=== PATIENT | male | born 1950 | race African-American/Black ===

== ENCOUNTER 2021-12-10 06:55 | Day surgery (SDC) | payer BC, SELFPAY ==
[2021-12-10] MEDS: LACTATED RINGERS 1000 ML 1,000 ML 100 ML IV (07:10)
[2021-12-10] MEDS: SODIUM CHLORIDE 0.9 % (FLUSH) 10 ML SYRINGE IVF (07:10)
[2021-12-10 07:13] VITALS: BP 135/78; PULSE 79; RESP 16; TEMP 36.6; O2SAT 98; BMI 24.0
--- NOTE | 2021-12-10 07:19 | SUR.PREOP ---
Covid home antigen test negative.
[2021-12-10] MEDS: CEFAZOLIN 1 GM inj IVP (07:44)
[2021-12-10] MEDS: BUPIVACAINE 0.25% 30 ML INJECTION (07:54)
--- NOTE | 2021-12-10 09:02 | PM.GSPRC ---
Operative Note Date of procedure: 12/10/21 Type of Procedure: 1. Excision of left breast mass 2. Excision of left flank mass 3. Excision of left posterior upper thigh mass Procedure Description: After discussing the risks and benefits of the procedure, the patient signed informed consent.? The operative site was marked and the patient was brought to the operating room and placed on the operating table in supine position.? Care was taken to pad the patient's pressure points.?? The patient was then given sedation by anesthesia.?? The operative site was then prepped and draped in the usual sterile fashion.? A time-out was then performed. Attention was 1st directed to the left posterior upper thigh mass. Local anesthetic was infiltrated in the surgical field. A horizontal incision was made directly over the mass. Dissection was carried down with electrocautery through subcutaneous tissue. The mass was multi lobulated and circumferentially dissected out in pieces. This was passed off to the back table to be sent to pathology. Findings were consistent with lipoma. Hemostasis was assured with electrocautery. The incision was closed in layers with interrupted 3 0 Vicryl and running 4-0 Monocryl. Exofin was applied over top. The patient was then repositioned supine and the chest and left flank prepped and draped in sterile fashion. Local anesthetic was infiltrated in the surgical field. A horizontal incision was made directly over the mass on the left chest, as well as left flank. Dissection was carried down for both areas with electrocautery through subcutaneous tissue. Both masses were welling capsulated and consistent with a mature lipoma. The mass was circumferentially dissected out in each area. In both places it was slightly adherent to the underlying fascia, but did not involve the fascia. Both masses were removed in its entirety and passed off to be sent to pathology. Hemostasis was assured with electrocautery. Both incisions were closed in layers with interrupted 3 0 Vicryl and running 4-0 Monocryl. Exofin was applied over top. ? The patient was then woken and transported to the recovery area in stable condition. ? The patient tolerated the procedure well. Findings: Lipomatous masses of the left posterior thigh, left chest and left flank. Anesthesia: MAC and local Surgeon: Lore Cabello MD Estimated blood loss (mL): 5 Condition: stable Disposition: same day
[2021-12-10 09:15] VITALS: BP 112/67; PULSE 65; RESP 16; TEMP 35.9; O2SAT 96
--- NOTE | 2021-12-10 09:20 | W.ANESCHARGE ---
Anesthesia Charges Start Date/Time Anesthesia Start Date: 12/10/21 Anesthesia Start Time: 07:33 Stop Date/Time Anesthesia Stop Date: 12/10/21 Anesthesia Stop Time: 09:18 Summary Emergency: No Extremes of Age: Over 70-CPT 98643
[2021-12-10 09:30] VITALS: BP 116/66; PULSE 63; RESP 16; O2SAT 98
[2021-12-10 09:45] VITALS: BP 112/72; PULSE 60; RESP 16; O2SAT 98
--- NOTE | 2021-12-10 10:06 | W.ANESCHARGE ---
Anesthesia Charges Start Date/Time Anesthesia Start Date: 12/10/21 Anesthesia Start Time: 07:33 Stop Date/Time Anesthesia Stop Date: 12/10/21 Anesthesia Stop Time: 09:18 Summary Emergency: No Extremes of Age: Over 70-CPT 27093
== END 2021-12-10 10:03 | disposition home or self-care (01) ==
PROVIDERS: PCP Physician Assistant Medical; Visit Provider Surgery
PROC: (CPT 27337; principal; 2021-12-10 07:30)
DX: D17.1 Benign lipomatous neoplasm of skin and subcutaneous tissue of trunk (principal); D17.24 Benign lipomatous neoplasm of skin and subcutaneous tissue of left leg
CPT/HCPCS: 27337; 21931; 21552; 00400; 88304; 99100; J0690; J2250; J2405; J2704; J3010; J3490; J7120

== ENCOUNTER 2022-06-26 18:38 | Emergency (ER) | payer BC, SELFPAY ==
[2022-06-26 18:43] VITALS: BP 159/82; PULSE 88; RESP 16; TEMP 36.6; O2SAT 98; BMI 24.2
--- NOTE | 2022-06-26 19:32 | ED.NURSE ---
Lawrence placed 900 cc removed.
[2022-06-26 19:40] LABS: Appearance Urine Clear (Clear); Bilirubin Urine Negative (Negative); Blood Urine 1+ (Negative); Color Urine Yellow (Yellow); Glucose Urine Negative (Negative); Ketones Urine Negative (Negative); Leukocyte Esterase Urine Negative (Negative); Nitrite Urine Negative (Negative); Protein Urine Negative (Negative); Specific Gravity Urine 1.015 (1.000-1.030); Urobilinogen Urine 0.2 (0.2-1.0); pH Urine 6.5 (5.0-8.5)
--- OUTSIDE RECORDS SUMMARY | 2022-06-26 19:46 | XMS_ITS | Continuity of Care Document ---
Author Name Unknown Organization [facility] Address [address] [address] [place] [address] Phone Care Team Providers Care Marking Room Supervisor Name Role Phone Unavailable Unavailable Unavailable Allergies, Adverse Reactions, Alerts Substance Reaction Status Criticality ibuprofen Active No Information Medications Medication Instructions Dosage Effective Dates (start - stop) Status Comments Epzicom 600 mg-300 mg tablet take 1 tablet by oral route every day 1.00 tablet - Active acetaminophen 325 mg tablet take 1 Tablet by ORAL route every 4 hours as needed 325 MG - Active clarithromycin 500 mg tablet take 1 tablet by oral route 2 times every day 500 MG - Active Sustiva 600 mg tablet take 1 tablet by oral route every day at bedtime - Active Vitamin D2 50,000 unit capsule take 1 capsule by ORAL route every week 76875 UNITS - Active ethambutol 400 mg tablet take 2 Tablet by oral route every day - Active folic acid 1 mg tablet take 1 tablet by oral route every day 1 MG - Active multivitamin tablet take 1 tablet by oral route every day with food - Active ZOFRAN ODT 4 mg disintegrating tablet take 1 Tablet by oral route every [address] on top of the tongue where it will dissolve, then swallow 4 MG - Active Procedures Procedure Date Subsqt Hosp-da E&m Minr Compl 4 Init Inpt Cons New/est Mod-hi 4 Offic/outpt E&m Estab Low-mod 4 Ugi Endo; W/bx /mx Level Iv-surg Path Gross/micro 14 Special Stains; Grp I Microorg 14 Immunocytochemistry, Each Antibody Immunocytochemistry Each Add'l Antibody Offic/outpt E&m Estab Low-mod 4 Routine Serum Collection Hepatic Function Panel Hepatic Function Panel Offic/outpt E&m Estab Mod-hi 2 14 Routine Serum Collection Subsqt Hosp-da E&m Minr Compl 4 Subsqt Hosp-da E&m Minr Compl 4 Subsqt Hosp-da E&m Minr Compl 4 Subsqt Hosp-da E&m Minr Compl 4 Init Inpt Cons New/est Mod-hi 4 Sigmoidoscopy Flex; W/bx /mx 4 Advance Directives Directive Yes / No Effective Date File Name No Information Encounters Encounter Description Practice Location Reason(s) For Visit Diagnoses Date Provider Providers Copied on Encounter [facility], [address] [address], [place], [id number], [place] tel:[phone] [facility] No Information 5 No Information Grady Reyna MD. tel:[phone] Subsqt Hosp-da E&m Minr Compl [facility], [address] [address], [place], [id number], [place] tel:[phone] [facility] No Information 4 Trey Bell. [address] [facility], [place] [address], [place], [place], [id number], [place]. tel:[phone] Referring Provider: Danna Medina MD, [address], [place], [address]. tel:[phone] Init Inpt Cons New/est Mod-hi [facility], [address] [address], [place], [id number], [place] tel:[phone] [facility] No Information 4 Tom Her. [address] [place] [address], [id number], [place]. tel:[phone] Referring Provider: Danna Medina MD, [address], [place], [address]. tel:[phone] Offic/outpt E&m Estab Low-mod [facility], [address] [address], [place], [id number], [place] tel:[phone] [facility] Liver Symptoms or Concerns (chief complaint) B No Coma-chron No Delta 4 Soo Baum. [address] [place] [address], [id number], [place]. tel:[phone] Grady Reyna MD. tel:[phone] ring Provider: Thais ROBERTS, [address] [place] [address], [place], [address]. tel:[phone] [facility], [address] [address], [place], [id number], [place] tel:[phone] [facility] Unspecified gastritis and gastroduodeni tis, without mention of hemorrhageWei ght LossGastritis 4 Grace Arreola. [address] [place] [address], [id number], [place]. tel:[phone] Offic/outpt E&m Estab Low-mod [facility], [address] [address], [place], [id number], [place] tel:[phone] [facility] Liver Symptoms or Concerns (chief complaint) B No Coma-chron No Delta 4 Soo Baum. [address] [place] [address], [id number], [place]. tel:[phone] Offic/outpt E&m Estab Mod-hi 2 [facility], [address] [address], [place], [id number], [place] tel:[phone] [facility] No Coma-chron No Delta 4 Soo Baum. [address] [facility], [address], [id number], [place]. [phone] Subsqt Hosp-da E&m Minr Compl [facility], [address] [address], [place], [id number], [place] tel:[phone] [facility] No Information 4 No Information Referring Provider: Ham Martinez, [address] [place], [address]. tel:[phone] Subsqt Hosp-da E&m Minr [facility], [address] [address], [facility] [place], [id number], [place] tel:[phone] [facility] No Information 4 Trey Bell. [address], [id number], [place]. tel:[phone] Referring Provider: Ham Martinez, [address] [place] [address], [place], [address]. tel:[phone] Subsqt Hosp-da E&m Minr [facility], [address] [address], [facility] [place], [id number], [place] tel:[phone] [facility] No Information 4 Irving Valdez. [address] [address], [place], [place], [id number], [place]. tel:[phone] Referring Provider: Edilia Holman MD G, [address] [place], [address]. tel:[phone] Init Inpt Cons New/est Mod-hi [facility], [address] [address], [place], [id number], [place] tel:[phone] [facility] No Information 4 Erica Allan. [address] [address], [place], [place], [id number], . tel:[phone] Referring Provider: Edilia Holman MD G, [address] , [place], [address]. tel:[phone] Family History Family Member Type Diagnosis Age At Onset First degree family history Problem (finding) No Family history of No history of Colon Polyps First degree family history Problem (finding) No history of Cancer, colon First degree family history Problem (finding) No history of Crohn's First degree family history Problem (finding) No history of Ulcerative Colitis Immunizations Vaccine Date Status Comments Flu (split) (3 yrs or older) administered Note: Invalid documented admin date was . ; Source: Other Provider Payers Payer name Insurance type Covered alliance party ID Authoriza tianna(s) [employer] Of [facility] [id number] Social History Type Description Quantity Date Captured Comments Alcohol Use Details Unknown Caffeine Use Details Unknown Tobacco Use Status No Information Smoking Status No Information Sex Male Chief Complaint And Reason For Visit No Information Reason For Referral Reason For Referral No Information Plan Of Treatment Date Type Action Status No Information History Of Present Illness Encounter Date Complaint History Of Prese nt Illness Liver Symptoms or Concerns Mr. Aristides amaral is a 62-year-old gentleman with HIV being treated by Dr. Reyna. He has significantly elevated liver enzymes when I saw him with an alkaline phosphatase of 3134, AST of 338, and ALT of 155. Interestingly, at that time his hepatitis B DNA was undetectable. I therefore did go ahead and get a liver biopsy. This showed a pattern most consistent with a drug reaction. He is on multiple anti-HIV medications. Going through the list and comparing them with LiverTox, it would appear that the Sustiva is the most likely culprit. I have talked to Dr. Reyna about switching that regimen. The patient has been doing fairly well. He has gained a little bit of weight with his gastric tube. He has had no fevers, chills, or sweats. He feels weak and he feels like it fall, but is very careful with his cane. Liver Symptoms or Concerns Mr. Aristides amaral is a 62-year-old male with known HIV and hepatitis B. His cocktail for HIV includes lamivudine. He has had significant suppression of his hepatitis B through undetectable levels on this regimen. His CD4 count apparently is close to normal and he has low HIV viral count. His major issue has been elevated liver enzymes despite the low viral count and fairly normal CD4. He has not gained significant amount of weight despite two feedings at night. We had had reportedly normal liver enzymes. From when I checked him last, his AST and ALT were in the 400-500s. We had suggested liver biopsy at that time, but wanted them to clear that with his HIV, Dr. Reyna. Dr. Reyna is in agreement and we will schedule liver biopsy. He has had no swelling in the ankles or abdomen, jaundice, pruritus, or blood in the stool. Functional Status Date Functional Assessmen t No Information Instructions Date Instruction Additional Infor jaswinder Hiatal Hernia Related to Unspe cified gastritis and gastroduodenitis, without mention of hemorrhage Assessments Type Assessment Date No Information Patient Care Teams Name Effective Dates (start - stop) Status Members No Information
--- OUTSIDE RECORDS SUMMARY | 2022-06-26 19:46 | XMS_ITS | Continuity of Care Document ---
Author Name Unknown Organization [facility] Address [address] [address] [place] [address] Phone Care Team Providers Care Before School Name Role Phone Unavailable Unavailable Unavailable Allergies, [...] 1 capsule by ORAL route every week 84533 UNITS - Active ethambutol 400 mg tablet [...] Provider Providers Copied on Encounter [facility], [address] [address], [place], [id number], [place] tel:[phone] [facility] No Information 5 No Information Grady Reyna MD. tel:[phone] Subsqt Hosp-da E&m Minr Compl [facility], [address] [address], [place], [id number], [place] tel:[phone] [facility] No Information 4 Trey Bell. [address] [facility], [place] [address], [place], [place], [id number], [place]. tel:[phone] Referring Provider: Dnana Medina MD, [address], [place], [address]. tel:[phone] Init Inpt Cons New/est Mod-hi [facility], [address] [address], [place], [id number], [place] tel:[phone] [facility] No Information 4 Tom Her. [address] [place] [address], [id number], [place]. tel:[phone] Referring Provider: Danna Medina MD, [address], [place], [address]. tel:[phone] Offic/outpt E&m Estab Low-mod [facility], [address] [address], [place], [id number], [place] tel:[phone] [facility] Liver Symptoms or Concerns (chief complaint) B No Coma-chron No Delta 4 Soo Baum. [address] [place] [address], [id number], [place]. tel:[phone] Grady Reyna MD. tel:[phone] ring Provider: Thais ROBERTS, [address] [place] [address], [place], [address]. tel:[phone] [facility], [address] [address], [place], [id number], [place] tel:[phone] [facility] Unspecified gastritis and gastroduodeni tis, without mention of hemorrhageWei ght LossGastritis 4 Garce Arreola. [address] [place] [address], [id number], [place]. tel:[phone] Offic/outpt E&m Estab Low-mod [facility], [address] [address], [place], [id number], [place] tel:[phone] [facility] Liver Symptoms or Concerns (chief complaint) B No Coma-chron No Delta 4 Soo Baum. [address] [place] [address], [id number], [place]. tel:[phone] Offic/outpt E&m Estab Mod-hi 2 [facility], [address] [address], [place], [id number], [place] tel:[phone] [facility] No Coma-chron No Delta 4 Soo Baum. [address] [facility], [address], [id number], [place]. tel:[phone] Subsqt Hosp-da E&m Minr Compl [facility], [address] [address], [place] [facility], [id number], [place] tel:[phone] [facility] No Information 4 No Information Referring Provider: Ham Martinez, [address] [place], [address]. tel:[phone] Subsqt Hosp-da E&m Minr [facility], [address] [address], [facility] [place], [id number], [place] tel:[phone] [facility] No Information 4 Trey Bell. [address], [id number], [place]. tel:[phone] Referring Provider: Ham Martinez, [address] [place] [address], [place], [address]. [phone] Subsqt Hosp-da E&m Minr [facility], [address] [address], [facility] [place], [id number], [place] tel:[phone] [facility] No Information 4 Irving Valdez. [address] [address], [place], [place], [id number], [place]. tel:[phone] Referring Provider: Edilia Holman MD G, [address] [place], [address]. tel:[phone] Init Inpt Cons New/est Mod-hi [facility], [address] [address], [facility] [facility], [id number], [place] tel:[phone] [facility] No Information 4 Erica Allan. [address] [address], [place], [place], [id number], . tel:[phone] Referring Provider: Edilia Holman MD G, [address] , [place], [address]. tel:[phone] Family History Family Member Type Diagnosis Age [...] Provider Payers Payer name Insurance type Covered green party ID Authoriza tianna(s) [employer] Of [facility] [id number] Social History Type Description Quantity Date Captured [...]
[2022-06-26 19:58] LABS: Bacteria Urine Few; RBC Urine 0-2 (0-2); Squamous Epithelial Cell Urine Few (None-Few); WBC Urine 0-2 (0-5)
--- NOTE | 2022-06-26 20:04 | ED_ITS ---
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 Farris, his urologist, for elevated PSA and BPH. He has been on finasteride and his prostate apparently is shrinking. His PSA is down to 2.6. At his last appointment on 06/09/2022 he was started on VESIcare because of complaints of nocturia. He does not believe that he has ever been on Flomax. He has continued to urinate at least 3 times at night. He has never had urinary retention until today. He urinated a little bit this morning and has been unable to urinate since that time. He contacted his urologist office and was told to push fluids as he may be dehydrated. He has drank a lot of water to day and his bladder feels full and painful. He has been completely unable to urinate. No fevers or chills. No nausea or vomiting. Related Data Home Medications Medication Instructions Recorded Confirmed amlodipine 10 mg tablet 10 mg PO DAILY 12/09/21 12/10/21 elviteg 150 mg-cob 150 mg-emtricit 1 tab PO DAILY 12/09/21 12/10/21 200 mg-tenofo alafenam 10 mg tablet (Genvoya) Allergies Allergy/AdvReac Type Severity Reaction Status Date / Time ibuprofen Allergy Unknown Flushing Verified 12/10/21 07:11 sulfamethoxazole Allergy Unknown anemia Verified 12/10/21 07:11 [From ] trimethoprim [From ] Allergy Unknown anemia Verified 12/10/21 07:11 Review of Systems Narrative: He is HIV positive and has been on medication for years. His local provider is Dr. Blas. He has had no dysuria, or urgency. Nocturia x3. No recent use of apbu-nyt-cfbjdme products, decongestants, cold meds. He does take amlodipine for hypertension. Review of systems in all other areas is noted to be negative. [facility] Medical History (Updated 06/26/22 @ 19:36 by Jose Babcock MD) HTN (hypertension) ?I10 - Essential (primary) hypertension (ICD-10) Hyperpiesia ?I10 - Essential (primary) hypertension (ICD-10) Elevated serum creatinine ?R79.89 - Other specified abnormal findings of blood chemistry (ICD-10) Hypotension ?I95.9 - Hypotension, unspecified (ICD-10) Sinus tachycardia ?R00.0 - Tachycardia, unspecified (ICD-10) Dehydration with hypernatremia ?E86.0 - Dehydration (ICD-10) ?E87.0 - Hyperosmolality and hypernatremia (ICD-10) ARF (acute renal failure) ?N17.9 - Acute kidney failure, unspecified (ICD-10) G6PD deficiency ?D75.A - Deviqcz-3-enjeswugf dehydrogenase (G6PD) deficiency without anemia (ICD-10) OUSMANE (mycobacterium avium-intracellulare) ?A31.0 - Pulmonary mycobacterial infection (ICD-10) Acute on chronic anemia ?D64.9 - Anemia, unspecified (ICD-10) AIDS ?B20 - Human immunodeficiency virus [HIV] disease (ICD-10) Elevated alkaline phosphatase level ?R74.8 - Abnormal levels of other serum enzymes (ICD-10) Onychomycosis ?B35.1 - Tinea unguium (ICD-10) Tinea corporis ?B35.4 - Tinea corporis (ICD-10) Social History Smoking Status: Never smoker How often do you have a drink containing alcohol: never AUDIT-C Alcohol total score: 0 Non-prescribed substance use: denies use Caffeine: No Exam Narrative: Exam Narrative: Vitals noted. He is uncomfortable, more so with lying down. HEENT: Conjunctiva clear. Lungs: Clear to auscultation in all prado. No wheezes, rales, rhonchi. Heart: Regular rate and rhythm without murmur. Abdomen: His bladder is distended. No guarding, rigidity, rebound. Bowel sounds are normal. No palpable masses. Extremities: No cyanosis or edema. Good distal pulses. Skin: No abnormalities noted of the exposed skin. Neurologic: Awake, alert, fully oriented. Neurologic exam is nonfocal. Const: Vital Signs, click to edit/add: Vital Signs - 24 hr 06/26/22 18:43 06/26/22 20:15 Temperature 98 F Pulse Rate [Pulse Oximeter] 88 72 Respiratory Rate 16 Blood Pressure [Le ft Upper Arm] 159/82 H 140/92 H Pulse Oximetry 98 96 Oxygen Delivery Me thod Room Air Room Air Course Course Hospital Course: Patient was seen and examined. His bladder was scanned for 800 mL. Lawrence catheter was placed and drained clear yellow urine. He had immediate relief of his discomfort. UA was sent and is unremarkable other than a few red blood cells. He is instructed on care of his catheter. Vital Signs Vital signs: Initial Vital Signs Temperature 98 F 06/26/22 18:43 Temperature Source Temporal Artery Scan 06/26/22 18:43 Pulse Rate 88 06/26/22 18:43 Respiratory Rate 16 06/26/22 18:43 Blood Pressure 159/82 H 06/26/22 18:43 Blood Pressure Mean 107 H 06/26/22 18:43 Pulse Oximetry 98 06/26/22 18:43 Oxygen Delivery Method Room Air 06/26/22 18:43 Vital Signs Temperature 98 F 06/26/22 18:43 Pulse Rate 88 06/26/22 18:43 Respiratory Rate 16 06/26/22 18:43 Blood Pressure 159/82 H 06/26/22 18:43 Pulse Oximetry 98 06/26/22 18:43 Oxygen Delivery Method Room Air 06/26/22 18:43 Temperature 98 F 06/26/22 18:43 Pulse Rate 72 06/26/22 20:15 Respiratory Rate 16 06/26/22 18:43 Blood Pressure 140/92 H 06/26/22 20:15 Pulse Oximetry 96 06/26/22 20:15 Oxygen Delivery Method Room Air 06/26/22 20:15 Medical Decision Making MDM Narrative Medical decision making narrative: We discussed that VESIcare can cause urinary retention. He will leave the Lawrence catheter in until he discusses things with Dr. Farris his urologist. He will return to the emergency department for any difficulty with a catheter. He will continue his finasteride. I suspect that once the VESIcare is out of his system he will be able to passed a trial of voiding. That can be done in his PCPs office or with his urologist. No indication for antibiotics. Lab Data Labs: Lab Results 06/26/22 Range/Units 19:30 Urine Color Yellow (Yellow) Urine Appearance Clear (Clear) Urine pH 6.5 (5.0-8.5) Ur Specific Raymond 1.015 (1.000-1.030) Urine Protein Negative (Negative) Urine Glucose (UA) Negative (Negative) Urine Ketones Negative (Negative) Urine Blood 1+ A (Negative) Urine Nitrite Negative (Negative) Urine Bilirubin Negative (Negative) Urine Urobilinogen 0.2 (0.2-1.0) Ur Leukocyte Esterase Negative (Negative) Urine RBC 0-2 (0-2) Urine WBC 0-2 (0-5) Ur Squamous Epith Cells Few (None-Few) Urine Bacteria Few A (None) Discharge Plan Discharge Clinical Impression: Acute retention of urine Patient Disposition: Home, Self-Care Condition: Improved Additional Instructions: You do not have a urinary infection. Leave catheter in place. Stop Solifenacin and contact Dr Farris for a replacement med. Continue Finasteride. Find out when Dr Farris would like you to have the catheter removed. This can be done in Dr Blas's office. If she is unavailable you can contact me in the clinic ([phone]). Continue to drink plenty of fluids. Prescriptions: No Action amlodipine 10 mg tablet 10 mg PO DAILY Genvoya [phone] mg tablet 1 tab PO DAILY Rx Instructions: must administer with a meal/food Follow Up/Referrals: Thais Bergman PA-C [Primary Care Provider] - Stand Alone Forms: [employer] Info Instructions
--- NOTE | 2022-06-26 20:11 | ED.NURSE ---
1,000 mLs of urine emptied from catheter bag.
[2022-06-26 20:15] VITALS: BP 140/92; PULSE 72; O2SAT 96
== END 2022-06-26 20:39 | disposition home or self-care (01) ==
LOC: ED 19:45
PROVIDERS: Emergency Provider Family Medicine; PCP Physician Assistant Medical
DX: R10.9 Unspecified abdominal pain (principal); R33.9 Retention of urine, unspecified
CPT/HCPCS: 51702; 51798; 81001; 87086; 99282; 99283

== ENCOUNTER 2022-10-14 11:42 | Emergency (ER) | payer BC, SELFPAY ==
[2022-10-14 11:50] VITALS: BP 136/85; PULSE 79; RESP 16; TEMP 36.3; O2SAT 97
--- NOTE | 2022-10-14 14:27 | ED_ITS ---
HPI - Male Genitourinary General Time Seen by Provider: 14:27 Date Seen: 10/14/22 Chief complaint: Urogenital Problems, Male Stated complaint: Testicular swelling Time Seen by Provider: 10/14/22 14:13 Source: patient and RN notes reviewed Mode of arrival: ambulatory Limitations: no limitations History of Present Illness HPI Narrative: This yamila 72-year-old gentleman is coming in with concern of increased scrotal swelling with known hydroceles. He has a urologist in the [facility], saw him about 6 weeks ago for urinary frequency and urgency which was diagnosed to be BPH per the patient's report. He was started on a medicine for this. He was also given an ultrasound of the scrotum as he had fluid on both testicles per report. Was told that there was benign fluid and these were hydroceles. Patient then proceeded to travel for a month back to his home plan, saw Dr. Heredia. 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 He was told that these would need surgical correction. On his flight home, he noted that the scrotum was quite swollen, had where a large sure to as the scrotum was protruding. Was not painful at all but was irritating in the fact that it was so swollen and visible. It has gone down since he has been home the last couple days. No change in urinary system, no penile discharge, no fevers or chills. Scrotum maintains nontender in decreased fluid in the scrotal sac. Related Data Home Medications Medication Instructions Recorded Confirmed amlodipine 10 mg tablet 10 mg PO DAILY 12/09/21 12/10/21 elviteg 150 mg-cob 150 mg-emtricit 1 tab PO DAILY 12/09/21 12/10/21 200 mg-tenofo alafenam 10 mg tablet (Genvoya) finasteride 5 mg tablet 5 mg PO DAILY 07/01/22 07/01/22 Allergies Allergy/AdvReac Type Severity Reaction Status Date / Time ibuprofen Allergy Unknown Flushing Verified 12/10/21 07:11 sulfamethoxazole Allergy Unknown anemia Verified 12/10/21 07:11 [From ] trimethoprim [From ] Allergy Unknown anemia Verified 12/10/21 07:11 Review of Systems Narrative: As per HPI. PFSH PFS Medical History HTN (hypertension) ?I10 - Essential (primary) hypertension (ICD-10) Hyperpiesia ?I10 - Essential (primary) hypertension (ICD-10) Elevated serum creatinine ?R79.89 - Other specified abnormal findings of blood chemistry (ICD-10) Hypotension ?I95.9 - Hypotension, unspecified (ICD-10) Sinus tachycardia ?R00.0 - Tachycardia, unspecified (ICD-10) Dehydration with hypernatremia ?E86.0 - Dehydration (ICD-10) ?E87.0 - Hyperosmolality and hypernatremia (ICD-10) ARF (acute renal failure) ?N17.9 - Acute kidney failure, unspecified (ICD-10) G6PD deficiency ?D75.A - Nuzndap-9-nirqghxqr dehydrogenase (G6PD) deficiency without anemia (ICD-10) OUSMANE (mycobacterium avium-intracellulare) ?A31.0 - Pulmonary mycobacterial infection (ICD-10) Acute on chronic anemia ?D64.9 - Anemia, unspecified (ICD-10) AIDS ?B20 - Human immunodeficiency virus [HIV] disease (ICD-10) Elevated alkaline phosphatase level ?R74.8 - Abnormal levels of other serum enzymes (ICD-10) Onychomycosis ?B35.1 - Tinea unguium (ICD-10) Tinea corporis ?B35.4 - Tinea corporis (ICD-10) Social History Smoking Status: Never smoker How often do you have a drink containing alcohol: never AUDIT-C Alcohol total score: 0 Non-prescribed substance use: denies use Caffeine: No Exam Const: Vital Signs, click to edit/add: Vital Signs - 24 hr 10/14/22 11:50 Temperature 97.3 F L Pulse Rate [Pulse Oximeter] 79 Respiratory Rate 16 Blood Pressure [Ri ght Upper Arm] 136/85 Pulse Oximetry 97 Oxygen Delivery Me thod Room Air Benja is a very pleasant 72-year-old male. He is alert interactive no apparent distress. Abdomen is soft, no organomegaly, nontender, nondistended. There is no inguinal masses or adenopathy. Normal circumcised penis without drainage. Scrotal sac look swollen, there is palpable fluid-filled structures bilaterally, underlying testes are palpable and symmetric, no masses noted. Overall there is absolutely no scrotal tenderness. The fluid filled structures in bilateral scrotal area consistent with hydroceles. Documenting provider has reviewed patient's vital signs: yes Course Course Hospital Course: Patient is advised that these are hydroceles, it is reassuring that these have gone down. We did discuss that they can increase in size. He has an appointment with his urologist on Thursday which he should keep and can discuss the management of the hydroceles further. Did advise him to let is urologist know that they did increased significantly in size on his travel home. I do not think he requires emergent ultrasound now coming is completely nontender and has no pain. He likewise has no fever, no acute urinary symptoms. Vital Signs Vital signs: Initial Vital Signs Temperature 97.3 F L 10/14/22 11:50 Temperature Source Temporal Artery Scan 10/14/22 11:50 Pulse Rate 79 10/14/22 11:50 Pulse Rhythm Regular 10/14/22 11:50 Respiratory Rate 16 10/14/22 11:50 Blood Pressure 136/85 10/14/22 11:50 Blood Pressure Mean 102 10/14/22 11:50 Blood Pressure Position Sitting 10/14/22 11:50 Pulse Oximetry 97 10/14/22 11:50 Oxygen Delivery Method Room Air 10/14/22 11:50 Vital Signs Temperature 97.3 F L 10/14/22 11:50 Pulse Rate 79 10/14/22 11:50 Respiratory Rate 16 10/14/22 11:50 Blood Pressure 136/85 10/14/22 11:50 Pulse Oximetry 97 10/14/22 11:50 Oxygen Delivery Method Room Air 10/14/22 11:50 Temperature 97.3 F L 10/14/22 11:50 Pulse Rate 79 10/14/22 11:50 Respiratory Rate 16 10/14/22 11:50 Blood Pressure 136/85 10/14/22 11:50 Pulse Oximetry 97 10/14/22 11:50 Oxygen Delivery Method Room Air 10/14/22 11:50 Discharge Plan Discharge Clinical Impression: Hydrocele Patient Disposition: Home, Self-Care Condition: Stable Instructions: Hydrocele (ED) Additional Instructions: Patient was advised to keep his follow-up in Thursday. He is to review the handout provided. Scrotal support and elevation can help diminish the fluid. Ultimately, needs review with urologists if these are too problematic for him and he wants corrective surgery done. Prescriptions: No Action amlodipine 10 mg tablet 10 mg PO DAILY Genvoya [phone] mg tablet 1 tab PO DAILY Rx Instructions: must administer with a meal/food finasteride 5 mg tablet 5 mg PO DAILY Follow Up/Referrals: Thais Bergman, PALesC [Primary Care Provider] - Stand Alone Forms: [employer] Info Instructions
== END 2022-10-14 14:59 | disposition home or self-care (01) ==
PROVIDERS: Emergency Provider Family Medicine; PCP Physician Assistant Medical
DX: N43.3 Hydrocele, unspecified (principal)
CPT/HCPCS: 99282; 99283